=== PATIENT | female | born 1940 | race Caucasian/White ===

== ENCOUNTER → 2016-11-14 | Outpatient (CLI) | payer MEDICARE, BC ==
[~2016-11-14] MED LIST: PHEN12.5 PO; PREV30CA36 PO; RAMI10CA PO
[2016-11-14 17:22] LABS: AUTOMATED NEUTROPHIL # 2.8 TH/MM3 (1.8-7.7); BASOPHIL # 0.1 TH/MM3 (0-0.2); BASOPHIL % 1.2 % (0.0-2.0); EOSINOPHIL # 0.1 TH/MM3 (0-0.4); EOSINOPHIL % 2.6 % (0.0-4.0); HEMATOCRIT 38.6 % (35.0-46.0); HEMO FLAGS DIFF FINAL; LYMPH % 21.2 % (9.0-44.0); LYMPHOCYTE # 0.9 TH/MM3 (1.0-4.8); MEAN CELL VOLUME 96.1 FL (80.0-100.0); MEAN CORPUSCULAR HEMOGLOBIN 31.3 PG (27.0-34.0); MEAN CORPUSCULAR HGB CONC 32.6 % (32.0-36.0); MONO % 10.6 % (0.0-8.0); NEUT % 64.4 % (16.0-70.0); PLATELET COUNT 107 TH/MM3 (150-450); RED BLOOD COUNT 4.02 MIL/MM3 (4.00-5.30); RED CELL DISTRIBUTION WIDTH 16.1 % (11.6-17.2); WHITE BLOOD COUNT 4.4 TH/MM3 (4.0-11.0)
[2016-11-14 18:03] LABS: ALKALINE PHOSPHATASE 103 U/L (45-117); ALT (GPT) 21 U/L (10-53); ANION GAP 9 MEQ/L (5-15); AST (GOT) 18 U/L (15-37); BICARBONATE 26.4 MEQ/L (21.0-32.0); BLOOD UREA NITROGEN 16 MG/DL (7-18); CHLORIDE 106 MEQ/L (98-107); GLOMERULAR FILTRATION RATE 61 ML/MIN (>89); POTASSIUM 4.6 MEQ/L (3.5-5.1); SODIUM (NA) 141 MEQ/L (136-145); TOTAL BILIRUBIN ADULT 0.4 MG/DL (0.2-1.0)
== END ==
LOC: PLAB 11:46
PROVIDERS: ATTEND Family Medicine
DX: I10 Essential (primary) hypertension (principal); D69.6 Thrombocytopenia, unspecified; Z85.528 Personal history of other malignant neoplasm of kidney
CPT/HCPCS: 36415; 80053; 85025

== ENCOUNTER → 2017-02-04 | Outpatient (CLI) | payer MEDICARE, BC ==
[2017-02-04 13:52] LABS: HDL CHOLESTEROL 66.2 MG/DL (40.0-60.0)
== END ==
LOC: PLAB 10:14
PROVIDERS: ATTEND Internal Medicine Interventional Cardiology
DX: R94.31 Abnormal electrocardiogram [ECG] [EKG] (principal); R94.39 Abnormal result of other cardiovascular function study; R06.09 Other forms of dyspnea; I10 Essential (primary) hypertension; I34.0 Nonrheumatic mitral (valve) insufficiency; I45.10 Unspecified right bundle-branch block; Z68.35 Body mass index [BMI] 35.0-35.9, adult
CPT/HCPCS: 36415; 80061

== ENCOUNTER 2017-03-05 06:01 | Day surgery (SDC) | payer MEDICARE, BC ==
[~2017-03-05] VITALS: Ht 152.4 cm; Wt 83.2 kg
[2017-03-05] MEDS ORDERED: ASPIRIN 325 MG TAB PO SCH (06:30)
[2017-03-05] MEDS ORDERED: diphenhydrAMINE HCL 50 MG CAP PO SCH (06:30)
[2017-03-05] MEDS ORDERED: NS 1000 ML @100 MLS/HR IV SCH (06:30)
[2017-03-05 06:49] VITALS: BP 209/93; PULSE 53; RESP 18; TEMP 97.7; O2SAT 98
[2017-03-05] MEDS ORDERED: RAMI10CA PO (06:56)
[2017-03-05] MEDS ORDERED: ASPI81TA11 PO (06:56)
[2017-03-05] MEDS ORDERED: NITR0.4S SL (06:56)
[2017-03-05 07:16] LABS: AUTOMATED NEUTROPHIL # 2.8 TH/MM3 (1.8-7.7); BASOPHIL % 0.7 % (0.0-2.0); EOSINOPHIL # 0.1 TH/MM3 (0-0.4); EOSINOPHIL % 2.9 % (0.0-4.0); HEMATOCRIT 37.5 % (35.0-46.0); LYMPH % 18.8 % (9.0-44.0); LYMPHOCYTE # 0.8 TH/MM3 (1.0-4.8); MEAN CORPUSCULAR HEMOGLOBIN 32.2 PG (27.0-34.0); MEAN CORPUSCULAR HGB CONC 33.1 % (32.0-36.0); MONO % 10.4 % (0.0-8.0); NEUT % 67.2 % (16.0-70.0); PLATELET COUNT 93 TH/MM3 (150-450); RED BLOOD COUNT 3.87 MIL/MM3 (4.00-5.30); RED CELL DISTRIBUTION WIDTH 15.6 % (11.6-17.2); WHITE BLOOD COUNT 4.2 TH/MM3 (4.0-11.0)
[2017-03-05 07:18] LABS: HEMO FLAGS AUTO DIFF
[2017-03-05 07:27] LABS: APTT (PATIENT) 28.4 SEC (24.3-30.1); PROTHROMBIN TIME - PATIENT 10.7 SEC (9.8-11.6)
[2017-03-05 07:39] LABS: BICARBONATE 26.2 MEQ/L (21.0-32.0)
[2017-03-05 07:50] LABS: PLATELET ESTIMATE SMEAR LOW (NORMAL); PLATELET MORPHOLOGY NORMAL (NORMAL); SCAN/DIFF AUTO DIFF CONFIRMED
[2017-03-05] MEDS ORDERED: IOHEXOL 350 MG/ML 100 ML BTL (for Cath Lab) OTHER ONE (08:40)
[2017-03-05] MEDS ORDERED: diphenhydrAMINE HCL 50 MG/ML VIAL ONE (08:46)
[2017-03-05] MEDS ORDERED: HEPARIN-NS/PF INJ 500 ML ONE (08:46)
[2017-03-05] MEDS ORDERED: HEPARIN SODIUM - IV 10,000 UNITS/10 ML VIAL ONE (09:10)
[2017-03-05] MEDS ORDERED: NITROGLYCERIN 2% OINT 1 GM PACKET ONE (09:13)
[2017-03-05] MEDS ORDERED: NIFEdipine 10 MG CAP ONE (09:29)
[2017-03-05] MEDS ORDERED: SODIUM CHLOR 0.9% 1000 ML INJ 1,000 ML IV SCH (09:47)
--- NOTE | 2017-03-05 09:48 | CATHPROC ---
[employer] HIS Report Study Information Study Number Admission Scheduled Start Study Start [id number] Mar 05 2017 6:01AM 03/05/2017 Mar 05 2017 8:57AM Study Type [place] Service Left/Possible PCI Cardiac Catheterization Admit Source Facility Department Other [facility] Physician and Clinical Staff Initial Сергей [facility] Specialist Wood RN, Bernardino Recorder Namrata Osuna,RT(R) Ness Wen,CHANDRIKA TECH2 Procedures Performed Procedure Location (Site) Vessel Name Coronary Angiograms LCA Left Coronary Coronary Angiograms RCA Right Coronary L Heart Cath Wire insertion Fem Art (right) Femoral Art Equipment Time Machine Scallop Cutter Description Size Mfg Part Number Used/Scraped STARCLOSE, VASCULAR CLOSER [id number] 09:27 [employer] FR 6 Used SYSTEM *[id number] TRANSDUCER, TRUWAVE [id number] 09:03 LUNA PACK * Used W/STOCKCOCK *[id number] 534-620T *[id number] 534-620T *[id number] 534-621T *[id number] PIGTAIL ANG. 145 INFINITI 534-652S CATHETER *[id number] PIGTAIL ANG. 145 INFINITI 534-652S CATHETER *[id number] 09:03 MEDLINE INDUSTRIES PACK, CCL CUSTOM * Used *[id number] 09:03 [employer] Contacts PACER PEN, SKIN DUAL W/ RULER * Used *[id number] 09:03 SUNDAYTOZ MEDICAL SHEATH, FR6.5 PRELUDE 11CM FR 6.5 038ACT Used *[id number] 09:03 SUNDAYTOZ MEDICAL WIRE, 3MMJ .035 180CM 180CM Used *[id number] 09:03 NAMIC MANIFOLD, 4 PORT * Used *[id number] 09:03 NYCOMED OMNIPAQUE, 350 MG, 150ML 150ML [id number] Used [id number] 09:03 TV TubeX MEDICAL BLANKET,WARM AIR CCL * Used *[id number] History: Current Medications Medication Dosage/Unit Route Frequency Last Date/Time Taken ASA NTG SL History: Allergies Allergy Reaction Penicillin History: Risk Factors Family History of Hypertension Dyslipidemia Previous NH Previous Heart Failure Premature CAD Yes Yes No No No Prior Valve Prior PCI Prior CABG Surgery No No No Cerebrovascular Peripheral Artery Chronic Lung On Dialysis Diabetes Disease Disease Disease No No No No No History: Symptoms/Diagnosis Selection Items SOB History: Stress Tests Stress or Imaging Studies Performed Yes Standard Exercise Stress Test No Stress Echo No Stress Test SPECT Stress Test SPECT Result Stress Test SPECT Ischemia Risk/Extent Yes Positive Intermediate Stress Test CMR No Cardiac CTA Coronary Calcium Score No No History: Other Current Smoker No Labs Hgb (g/dl) Hct (%) WBC (l/cumm) Platelets (thousands) 11.60-17.00 35.00-51.00 4.00-11.00 150.00-450.00 12.4 37.5 4.2 93 Glucose (mg/dl) BUN (mg/dl) Creatinine (mg/dl) BUN:Creatinine (1:x) 74.00-106.00 7.00-18.00 0.50-1.30 10.00-20.00 84 23 0.9 25.6 Na (meq/l) K (meq/l) 136.00-145.00 3.50-5.10 143 4 INR (PTT:PT) 0.90-1.10 1 CPK-MB (ng/ML) 0.50-3.60 Not Drawn Medication Medication Total Dose (Bolus/Oral) Medication Total Dosage/Unit 1% XYLOCAINE 20 mL BENADRYL 50 mg FENTANYL 25 mcg HEPARIN 1000 units NITRO OINTMENT 1 inches PROCARDIA 10 mg Medications (Bolus/Oral) Medication Time Given Dosage/Unit Administered By Reason 1% XYLOCAINE 03/05/2017 9:08:21 AM 20 mL Сергей Juarez 20 mL 1% XYLOCAINE given in lab by Сергей Juarez in Right Groin via Subcutaneous. BENADRYL 03/05/2017 9:08:36 AM 50 mg Brenardino Pink RN 50 mg BENADRYL given in lab by Bernardino Pink RN via Peripheral IV. FENTANYL 03/05/2017 9:09:00 AM 25 mcg Bernardino Pink RN 25 mcg FENTANYL given in lab by Bernardino Pink RN via Peripheral IV. HEPARIN 03/05/2017 9:12:07 AM 1000 units Bernardino Pink RN 1000 units HEPARIN given in lab by Bernardino Pink RN via Peripheral IV. NITRO OINTMENT 03/05/2017 9:14:49 AM 1 inches Bernardino Pink RN 1 inches NITRO OINTMENT given in lab by Bernardino Pink RN via Peripheral IV. PROCARDIA 03/05/2017 9:31:30 AM 10 mg Bernardino Pink RN 10 mg PROCARDIA given in lab by Bernardino Pink RN in Left Antecubital via Peripheral IV. Medication (Drip) Medication Time Given Dosage/Unit Concentration/Unit Diluent (ml) Solution IV Solutions 03/05/2017 8:57:45 AM 0 mL (IV) 500 NaCl .9 Patient arrived on IV Solutions in Left Antecubital via Peripheral IV. Pump/Drip Flow = 20 ml/hr usin g NaCl .9. Initial Case Assessment Cardiovascular HR Rhythm NIBP Chest Pain 56 marjan 199/79 0 Edema Present Skin color Skin None Normal Warm Circulatory - Right Pulses Dorsalis Pedis Femoral 3 3 Scale (0,1,2,3,4,d) Circulatory - Left Pulses Dorsalis Pedis Femoral 3 3 Scale (0,1,2,3,4,d) Circulatory - Lower Extremities Color Lower Right Color Lower Left Normal Normal Neurological State Oriented to time-place- Alert Moves all extremities person Respiration - General Respiration Rate SpO2 (%) (B/min) 17 96 Final Case Assessment Cardiovascular HR Rhythm NIBP Chest Pain 61 marjan 173/70 0 Edema Present Skin None Warm Circulatory - Right Pulses Dorsalis Pedis Femoral 3 3 Scale (0,1,2,3,4,d) Circulatory - Left Pulses Dorsalis Pedis Femoral 3 3 Scale (0,1,2,3,4,d) Circulatory - Lower Extremities Color Lower Right Color Lower Left Normal Normal Neurological State Oriented to time-place- Alert Moves all extremities person Respiration - General Respiration Rate SpO2 (%) (B/min) 17 99 Chronological Log Time Study Chronological Log 8:40:40 Patient arrived via Bed. 8:42:13 Consent signed by the physician and the patient and verified by the [employer] staff. 8:43:17 Pre-op and post- op instructions given; patient acknowledges understanding of instructions. 8:44:21 Verbal Stimulation=2 Physical Stimulation=2 Airway=2 Respiration=2 TOTAL=8. (0=absent, 1=li mited, 2=present) Vitals capture started with the following parameters, Patient=Adult, Interval=5 min, Initial Pr dpiufk=848 mmHg, 8:57:01 Deflation Rate=5 mmHg 8:57:09 Patient Name, D.O.B, / Armband Verified By R.N. 8:57:25 Patient has been NPO for More than 6Hrs. 8:57:27 Skin Breakdown-none 8:57:28 Patient Warmer Placed on the Table. 8:57:31 A # 20 IV was noted in the Antecubital (left). Grade = 0 8:57:41 Reference ECG taken 8:57:45 Patient arrived on IV Solutions in Left Antecubital via Peripheral IV. Pump/Drip Flow = 20 ml/hr using NaCl .9. 8:58:00 Pressure channel 1 zeroed. 8:59:03 HR=57 bpm, IRTN=314/79 mmhg, SpO2=97.0 %, Resp=20 B/min, Pain=0, Pete=10, Zeng=2 8:59:53 History and physical on the chart or being dictated. Assessment: Initial Case, HR=56 BPM, Rhythm=marjan, NBBW=993/79 mmhg, Chest Pain=0, Edema=None, Color=Normal, Skin = Warm Right Pulses: Edward Ped=3, Femoral=3 Left Pulses: Edward Ped=3, Femoral=3 8:59:54 Lower Right Extremities: Color=Normal Lower Left Extremities: Color=Normal Neurological: State=Alert, Ox3, DUQUE Respiration: Resp=17 B/min, SpO2=96 % 9:00:34 Bilateral groins prepped with 2% chlorhexidine, and with a 3 min. waiting time. 9:02:52 HR=55 bpm, LPMI=546/77 mmhg, SpO2=97.0 %, Resp=18 B/min, Pain=0, Pete=10, Zeng=2 9:04:35 MD arrived. Time Out. Correct patient, correct procedure,correct physician, ,power injector not loaded with contrast with surgical 9:07:31 team present. Time Out Concurred by MD, individual staff and CLERK SPECIALIST in procedure 9:07:40 Case Start 9:07:49 HR=59 bpm, RJVE=405/82 mmhg, SpO2=98.0 %, Resp=21 B/min, Pain=0, Pete=10, Zeng=2 9:08:14 Verbal Stimulation=2 Physical Stimulation=2 Airway=2 Respiration=2 TOTAL=8. (0=absent, 1=osborn ited, 2=present) 9:08:21 20 mL 1% XYLOCAINE given in lab by Сергей Juarez in Right Groin via Subcutaneous. 9:08:36 50 mg BENADRYL given in lab by Bernardino Pink RN via Peripheral IV. 9:09:00 25 mcg FENTANYL given in lab by Bernardino Pink RN via Peripheral IV. 9:11:23 Access site was Right Femoral Artery. 9:11:29 A wire was inserted via Fem Art (right). 9:11:30 A SHEATH, FR6.5 PRELUDE 11CM FR 6.5 was advanced into the Fem Art (right) using the Percutan eous technique. 9:12:07 1000 units HEPARIN given in lab by Bernardino Pink RN via Peripheral IV. A JL 4.0 INFINITI CATHETER FR 6 was advanced over a wire. OMNIPAQUE, 350 MG, 150ML 150ML was use d for 9:12:20 injections. 9:12:53 HR=57 bpm, CUBS=675/81 mmhg, SpO2=93.0 %, Resp=27 B/min, Pain=0, Pete=10, Zeng=2 Recorded Pressure: Ao, HR=60, Condition=Condition 1 9:13:01 (Aorta) Ao 198/79/125 9:14:30 The LCA was injected and visualized at various angles. OMNIPAQUE, 350 MG, 150ML 150ML used. 9:14:49 1 inches NITRO OINTMENT given in lab by Bernardino Pink RN via Peripheral IV. 9:16:44 Catheter was removed A JR 4.0 INFINITI CATHETER FR 6 was advanced over a wire. OMNIPAQUE, 350 MG, 150ML 150ML was use d for 9:17:35 injections. 9:17:47 HR=61 bpm, YHOM=368/77 mmhg, SpO2=93.0 %, Resp=25 B/min, Pain=0, Pete=10, Zeng=2 9:18:40 The RCA was injected and visualized at various angles. OMNIPAQUE, 350 MG, 150ML 150ML used. 9:19:09 Catheter was removed 9:19:14 power injector loaded now by rosalie pink and verified by lady gore A PIGTAIL ANG. 145 INFINITI CATHETER FR 6 was advanced over a wire. OMNIPAQUE, 350 MG, 150ML 150 ML was 9:19:48 used for injections. Recorded Pressure: LV, HR=65, Condition=Condition 1 9:20:57 (Left Ventricle) LV 185/5/16 9:22:46 HR=63 bpm, KBKR=644/82 mmhg, SpO2=98.0 %, Resp=20 B/min, Pain=0, Pete=10, Zeng=2 Recorded Pressure: LV, Ao, HR=63, Condition=Condition 1 9:23:20 (Left Ventricle) LV 184/9/17, (Aorta) Ao 184/70/115 9:23:53 Catheter was removed 9:25:04 An injection in the Fem Art (right) was made through the SHEATH, FR6.5 PRELUDE 11CM FR 6.5 . Assessment: Final Case, HR=61 BPM, Rhythm=marjan, UOCD=190/70 mmhg, Chest Pain=0, Edema=None, S kin = Warm Right Pulses: Edward Ped=3, Femoral=3 Left Pulses: Edward Ped=3, Femoral=3 9:27:37 Lower Right Extremities: Color=Normal Lower Left Extremities: Color=Normal Neurological: State=Alert, Ox3, DUQUE Respiration: Resp=17 B/min, SpO2=99 % 9:27:52 HR=61 bpm, PBLU=721/70 mmhg, SpO2=99.0 %, Resp=17 B/min, Pain=0, Pete=10, Zeng=2 9:31:30 10 mg PROCARDIA given in lab by Bernardino Pink RN in Left Antecubital via Peripheral IV. 9:32:33 Catheter(s) removed without difficulty 9:32:36 STARCLOSE, VASCULAR CLOSER SYSTEM FR 6 placement in the Fem Art (right) 9:32:51 HR=60 bpm, ATFL=447/77 mmhg, SpO2=99.0 %, Resp=18 B/min, Pain=0, Pete=10, Zeng=2 9:33:05 Sterile dressing applied to site 9:33:06 No case complications noted. 9:33:08 Cine recording checked. 9:33:10 Bedside Report will be given. 9:33:13 Contrast Scanned 9:33:16 A Left Heart Cath was performed. 9:33:20 Patient moved to stretcher 9:33:22 Clinical correlaton risk stratification. 9:35:30 Case End 9:37:50 HR=60 bpm, CTXC=661/74 mmhg, SpO2=98.0 %, Resp=13 B/min, Pain=0, Pete=10, Zeng=2 9:38:59 Vitals capture stopped. End Study - Contrast Media Used In Study Contrast Total Opened (mL) Total Used (mL) Total Wasted (mL) Omnipaque 80 80 0 End Study - Maximum Contrast Load Max Contrast Load (mL) 462.1 End Study - Radiation Exposure Fluoro Time (minutes) 2.5 End Study - Sheaths Sheaths Pulled By Sheath Hold Time (min) Сергей Juarez End Study - Patient Disposition Complications Transferred To No Outpatient Bed
[2017-03-05] MEDS ORDERED: ONDANSETRON HCL 4 MG/2 ML VIAL IV PRN (10:00)
[2017-03-05] MEDS ORDERED: ACETAMINOPHEN 500 MG CPLT PO PRN (10:00)
[2017-03-05] MEDS ORDERED: ATROPINE SULFATE 1 MG/ML VIAL IV PRN (10:00)
[2017-03-05] MEDS ORDERED: SODIUM CHLOR 0.9% 250 ML INJ 250 ML IV PRN (10:00)
[2017-03-05] MEDS ORDERED: MISC INFORMATION XX ONE (10:00)
--- NOTE | 2017-03-05 10:25 | MA ---
cc: MARCIANO KIM M.D. [facility] DATE 03/05/2017 PROCEDURE 1. Left heart cath 2. Coronary arteriogram 3. Left ventriculogram 4. Right femoral arteriogram 5. Right femoral arteriotomy site closure using a StarClose device. SENIOR SITE MANAGER Hallie Kim MD SECURITY COORDINATOR Ness Sandhu, RT INDICATION Presentation with dyspnea on exertion and echocardiogram showing moderate mitral valve regurgitation and nuclear stress study showing anterior and lateral wall ischemia more prominent in the lateral white and it was felt that the mitral regurgitation might be ischemic in origin and because of her symptoms, she was advised to proceed with a cardiac catheterization. EQUIPMENT USED 6-Tuvaluan short sheath, 0.035 J guidewire, 6-Tuvaluan JL-4, JR-4 and pigtail diagnostic catheters. A StarClose device. PROCEDURE After obtaining informed consent, the right groin was prepped in the usual sterile fashion. 15 cc of 1% lidocaine were used for local anesthesia. Using the modified Seldinger technique, the right femoral artery was cannulated and a 6-Tuvaluan short sheath was inserted in the right femoral artery. Using the above-mentioned diagnostic catheters, selective coronary angiograms were performed. This was followed by left ventriculogram performed in the FARMER view at 30 angle. At the end of the procedure, right femoral system was injected revealing no significant disease and a StarClose device was applied achieving adequate hemostasis. The patient tolerated the procedure well without acute complication at the time of dictation. CARDIAC CATHETERIZATION FINDINGS HEMODYNAMICS The aortic pressure initially was 190/70 mmHg, mean aortic pressure of 110 mmHg. There was no gradient across the aortic valve. Left ventricle end-diastolic pressure was around the 18 mmHg. CORONARIES Left main artery arose from the left sinus of Valsalva. This had an ostial 10%. Left circumflex artery branched from the left main artery, had mild irregularities of less than 20%. It gave a good sized OM branch that bifurcates to upper lower branches that had mild diffuse irregularities of less than 30%. The circumflex extended in the AV groove as a small caliber vessel that gives tiny PLV branches with mild luminal irregularities of less than 20%. A small atrial branch from the mid circumflex had mild diffuse regularities of less than 30%. Left anterior descending artery branched from the left main artery. This bifurcated in the proximal portion to a dual LAD system. The lateral system then bifurcated to other branches. The upper branch had some mild bridging phenomenon in the proximal portion with no compromise of distal flow. The medial branch LAD proper had 30-40% proximal disease. It gave septal branches with minor luminal irregularities. It extended distally to wrap around the apex with mild diffuse regularities of less than 20%. Right coronary artery arose from the right sinus of Valsalva. This was a relatively big dominant vessel with minimal irregularities of less than 20%. Distally, it gave good sized PDA and PLV branches with multiple other smaller branches and whole system had mild luminal irregularities of less than 30%. A mid RV branch had an ostial 20% disease. A high cornus branch had mild luminal irregularities of less than 20%. LEFT VENTRICULOGRAM Showed adequate wall motion. There is mild left ventricle hypertrophy. There might be some concentric hypertrophy at the mid to distal portion close to the apex from the way the tip of the pigtail was behaving with possibly a subtle degree of prolapse of the mitral valve, but only mild mitral regurgitation noted here on the LV gram. CONCLUSION OF THE CARDIAC CATHETERIZATION 1. Mild epicardial coronary artery disease. 2. Dominant RCA system 3. Left ventricular hypertrophy with normal left ventricle systolic function and possibly mid to distal concentric hypertrophy noted. 4. Mild bridging of a lateral branch of the diagonal/lateral dual LAD system with no compromise of distal flow. 5. Mildly elevated left ventricle end-diastolic pressure. 6. Mild mitral regurgitation with possible subtle prolapse. RECOMMENDATIONS Medical therapy with tight control of risk factors. MD OLINDA Garcia/SHIRLEY /9:36 AM /10:04 AM
[2017-03-05] MEDS ORDERED: BACITRACIN OINT 0.9 GM PKT TOP ONE (10:30)
--- NOTE | 2017-03-05 20:29 | EKG ---
Date Performed: 03/05/2017 Time Performed: 07:10:36 PTAGE: 77 years EKG: Sinus bradycardia Leftward axis Right bundle branch block Abnormal ECG PREVIOUS TRACING : 12/27/2011 11.16 Compared to the previous tracing RBBB present DOCTOR: Dat Aguirre Interpretating Date/Time 03/05/2017 20:28:12
== END 2017-03-05 12:00 | disposition home or self-care (01) ==
LOC: HDOC 06:01 → HDIC 06:02 → HDOC 12:00
PROVIDERS: ATTEND Internal Medicine Interventional Cardiology
DX: I25.10 Atherosclerotic heart disease of native coronary artery without angina pectoris (principal); I34.0 Nonrheumatic mitral (valve) insufficiency; I45.10 Unspecified right bundle-branch block; D69.6 Thrombocytopenia, unspecified; R94.31 Abnormal electrocardiogram [ECG] [EKG]; Z85.528 Personal history of other malignant neoplasm of kidney
CPT/HCPCS: 80048; 85025; 85610; 85730; 93005; 93454; C1760; C1769; C1893; G0269; J1200; J1644; J3010; Q9967

== ENCOUNTER → 2017-04-07 | Outpatient (CLI) | payer MEDICARE, BC ==
[~2017-04-07] MED LIST changes: +ASPI81TA11 PO; +NITR0.4S SL; -PHEN12.5 PO; -PREV30CA36 PO
[2017-04-07 12:02] LABS: ALT (GPT) 22 U/L (10-53); ANION GAP 8 MEQ/L (5-15); AST (GOT) 17 U/L (15-37); BICARBONATE 26.8 MEQ/L (21.0-32.0); BLOOD UREA NITROGEN 18 MG/DL (7-18); CHLORIDE 108 MEQ/L (98-107); GLOMERULAR FILTRATION RATE 62 ML/MIN (>89); GLUCOSE,FASTING 83 MG/DL (74-99); POTASSIUM 4.3 MEQ/L (3.5-5.1); SODIUM (NA) 143 MEQ/L (136-145)
[2017-04-07 12:05] LABS: ALKALINE PHOSPHATASE 105 U/L (45-117); HDL CHOLESTEROL 64.9 MG/DL (40.0-60.0); LDL CHOLESTEROL 46 MG/DL (0-99); TOTAL BILIRUBIN ADULT 0.4 MG/DL (0.2-1.0)
== END ==
LOC: PLAB 09:59
PROVIDERS: ATTEND Family Medicine
DX: E78.2 Mixed hyperlipidemia (principal); I10 Essential (primary) hypertension; I51.7 Cardiomegaly; D69.6 Thrombocytopenia, unspecified; Z85.528 Personal history of other malignant neoplasm of kidney; Z68.38 Body mass index [BMI] 38.0-38.9, adult
CPT/HCPCS: 36415; 80053; 80061

== ENCOUNTER → 2017-09-16 | Outpatient (CLI) | payer MEDICARE, BC ==
[~2017-09-16] MED LIST changes: -ASPI81TA11 PO; +ASPI81TA23 PO
[2017-09-16 13:44] LABS: BASOPHIL % 0.6 % (0.0-2.0); EOSINOPHIL # 0.2 TH/MM3 (0-0.4); EOSINOPHIL % 5.1 % (0.0-4.0); HEMATOCRIT 36.7 % (35.0-46.0); HEMOGLOBIN 12.5 GM/DL (11.6-15.3); LYMPH % 25.3 % (9.0-44.0); LYMPHOCYTE # 0.8 TH/MM3 (1.0-4.8); MEAN CELL VOLUME 96.1 FL (80.0-100.0); MEAN CORPUSCULAR HEMOGLOBIN 32.7 PG (27.0-34.0); MEAN PLATELET VOLUME 9.2 FL (7.0-11.0); MONO % 8.9 % (0.0-8.0); MONOCYTE # 0.3 TH/MM3 (0-0.9); NEUT % 60.1 % (16.0-70.0); PLATELET COUNT 104 TH/MM3 (150-450); RED BLOOD COUNT 3.81 MIL/MM3 (4.00-5.30); RED CELL DISTRIBUTION WIDTH 15.8 % (11.6-17.2); WHITE BLOOD COUNT 3.3 TH/MM3 (4.0-11.0)
[2017-09-16 14:09] LABS: ALBUMIN 3.2 GM/DL (3.4-5.0); AST (GOT) 22 U/L (15-37); BICARBONATE 27.9 MEQ/L (21.0-32.0); BLOOD UREA NITROGEN 20 MG/DL (7-18); CALCIUM 8.7 MG/DL (8.5-10.1); CHLORIDE 108 MEQ/L (98-107); CREATININE 0.86 MG/DL (0.50-1.00); GLOMERULAR FILTRATION RATE 64 ML/MIN (>89); GLUCOSE,FASTING 88 MG/DL (74-99); SODIUM (NA) 141 MEQ/L (136-145)
[2017-09-16 14:10] LABS: ALT (GPT) 31 U/L (10-53); CHOLESTEROL 128 MG/DL (120-200)
[2017-09-16 14:15] LABS: ALKALINE PHOSPHATASE 106 U/L (45-117); CHOLESTEROL/ HDL RATIO 1.91 RATIO; HDL CHOLESTEROL 66.9 MG/DL (40.0-60.0); LDL CHOLESTEROL 51 MG/DL (0-99); TOTAL BILIRUBIN ADULT 0.4 MG/DL (0.2-1.0); TOTAL PROTEIN 6.2 GM/DL (6.4-8.2); TRIGLYCERIDES 49 MG/DL (42-150)
== END ==
LOC: PLAB 09:30
PROVIDERS: ATTEND Family Medicine
DX: I10 Essential (primary) hypertension (principal); E78.2 Mixed hyperlipidemia; I51.7 Cardiomegaly; K21.9 Gastro-esophageal reflux disease without esophagitis; D69.6 Thrombocytopenia, unspecified; Z68.38 Body mass index [BMI] 38.0-38.9, adult; Z85.528 Personal history of other malignant neoplasm of kidney
CPT/HCPCS: 36415; 80053; 80061; 85025